=== PATIENT | female | born 1980 | race Caucasian/White ===

== ENCOUNTER → 2018-02-02 | Outpatient (CLI) | payer BC ==
--- NOTE | 2018-02-02 15:57 | RADIOLOGY IMAGING REPORT ---
FACILITY: [facility] [place] PATIENT NAME: RAFIA DOZIER : [id number] MR: [id number] V: [id number] EXAM DATE: ORDERING PHYSICIAN: RODRI IYER TECHNOLOGIST: Flory Gill PROCEDURE:BILATERAL DIAGNOSTIC DIGITAL MAMMOGRAM WITH CAD ASSISTED INTERPRETATION & 3D TOMOSYNTHESIS COMPARISON:None. INDICATIONS:TENDER LT BREAST FINDINGS: Moderately dense fibroglandular tissue is seen throughout the breasts. In the medial inferior portion of the Left breast in the middle 1/3 there is an ovoid nodular area. This likely represents the small cyst identified in the 6 o'clock position on Today's Left breast Ultrasound. There is no demonstration of malignant appearing mass or calcifications in either breast. DIAGNOSTIC CATEGORY 2--BENIGN FINDING. RECOMMENDATIONS: CLINICAL EVALUATION. IMPRESSION: BIRADS 2: Benign finding. Small ovoid nodule in the medial inferior Left breast likely represents the small cyst identified in the 6 o'clock position on Today's Left breast Ultrasound. Dictated by: Dina Garcia M.D. on 02/02/2018 at 14:55 Transcribed by: NIKO on 02/02/2018 at 15:11 Approved by: Dina Garcia M.D. on 02/02/2018 at 15:56 [facility]
--- NOTE | 2018-02-02 15:58 | RADIOLOGY IMAGING REPORT ---
FACILITY: [facility] [place] PATIENT NAME: RAFIA DOZIER : [id number] MR: [id number] V: [id number] EXAM DATE: ORDERING PHYSICIAN: RODRI IYER TECHNOLOGIST: Vikas Ly RDMS, NEGIN PROCEDURE:US LEFT BREAST COMPARISON:None. INDICATIONS:LEFT BREAST MASS 5-7 O'CLOCK POSITION FINDINGS: There is a well circumscribed 5mm cyst in the 6 o'clock position of the Left breast 5cm from the nipple likely accounting for patient's palpable findings. DIAGNOSTIC CATEGORY 2--BENIGN FINDING. RECOMMENDATIONS: CLINICAL EVALUATION. IMPRESSION: BIRADS 2: Benign finding. There is a small 5mm cyst in the 6 o'clock position of the Left breast most likely accounting for patient's palpable findings. Dictated by: Dina Garcia M.D. on 02/02/2018 at 14:56 Transcribed by: NIKO on 02/02/2018 at 15:15 Approved by: Dina Garcia M.D. on 02/02/2018 at 15:56 [facility]
== END ==
LOC: MAMO 10:34
PROVIDERS: ATTEND Physician Assistant
DX: N60.02 Solitary cyst of left breast (principal)
CPT/HCPCS: 77062; 77066

== ENCOUNTER → 2018-04-06 | Outpatient (CLI) | payer BC ==
[~2018-04-06] MED LIST: DEXL60CA6 PO
[2018-04-06 14:25] LABS: PLATELET COUNT, AUTOMATED 282 K/uL (150-450)
== END ==
LOC: LAB 13:54
PROVIDERS: ATTEND Nurse Practitioner Family
DX: R19.7 Diarrhea, unspecified (principal); K59.00 Constipation, unspecified; K21.9 Gastro-esophageal reflux disease without esophagitis
CPT/HCPCS: 36415; 82040; 82150; 82247; 82310; 82374; 82435; 82565; 82947; 83690; 84075; 84132; 84155; 84295; 84450; 84460; 84520; 85025

== ENCOUNTER 2018-04-07 00:38 | Day surgery (SDC) | payer BC ==
[~2018-04-07] VITALS: Ht 165.1 cm; Wt 69.9 kg
[2018-04-07 07:52] VITALS: BP 118/94
[2018-04-07] MEDS ORDERED: LIDOCAINE/SOD BICARB 8.4% SYR ID ONE (08:00)
[2018-04-07] MEDS ORDERED: NORMOSOL R SOLN(*) 1000 ML BAG 1,000 ML IV PRN (08:00)
[2018-04-07] MEDS ORDERED: LIDOCAINE MPF 1% 5 ML VIAL ONE (08:10)
[2018-04-07] MEDS ORDERED: PROPOFOL EMUL(*) 10MG/ML 20 ML 60 ML ONE (08:10)
[2018-04-07] MEDS ORDERED: KETAMINE HCL 500 MG/10 ML VIAL ONE (08:11)
[2018-04-07 10:08] VITALS: BP 107/87
[2018-04-07 10:34] VITALS: BP 116/87
[2018-04-07 10:51] VITALS: BP 120/96
[2018-04-07 10:52] VITALS: BP 129/97
== END 2018-04-07 11:00 | disposition home or self-care (01) ==
LOC: OR 00:38
PROVIDERS: ATTEND Internal Medicine Gastroenterology
DX: K44.9 Diaphragmatic hernia without obstruction or gangrene (principal); K20.9 Esophagitis, unspecified; K29.70 Gastritis, unspecified, without bleeding; K63.5 Polyp of colon; K64.8 Other hemorrhoids; K57.30 Diverticulosis of large intestine without perforation or abscess without bleeding
CPT/HCPCS: 00811; 43239; 45380; 45385; 88305; 88313; 88344; J2001; J2704; J3490

== ENCOUNTER 2018-07-01 11:25 | Emergency (ER) | payer BC ==
[2018-07-01] MEDS ORDERED: PROCHLORPERAZINE MAL 5 MG TAB PO ONE (12:00)
[2018-07-01] MEDS ORDERED: IBUPROFEN 600 MG TAB PO ONE (12:00)
[2018-07-01] MEDS ORDERED: ACETAMINOPHEN 325 MG TAB PO ONE (12:00)
[2018-07-01] MEDS ORDERED: diphenhydrAMINE 25 MG CAP PO ONE (12:00)
--- NOTE | 2018-07-01 12:30 | ER Report ---
History and Physical Time Seen By MD: 11:50 Hx. of Stated Complaint: migraine HPI/ROS CHIEF COMPLAINT: headache HISTORY OF PRESENT ILLNESS: Pt has 15 yr hx of intermittent rodriguez's, 2-3 /mo, usually last 1 d, resolved with excedrin. 2 d ago was at work when rodriguez began gradually, increasing to maximum over 1-2 hrs, and has been constant, throbbing, 8-9/10, radiating throughout her head, into her neck, and has not resolved with excedrin or sleep. She went to urgent care and referred here b/c this rodriguez is worse than others she's experienced. She also notes more nausea with it than usual. No weakness, no sudden onset or thunderclap, no syncope or presyncope. Notes that she is light sensitive, though no scotomas or blurred vision REVIEW OF SYSTEMS: Constitutional: No fever, no chills. Eyes: No discharge. ENT: No sore throat. Cardiovascular: No chest pain, no palpitations. Respiratory: No cough, no shortness of breath. Gastrointestinal: No abdominal pain, no vomiting. Genitourinary: No hematuria. Musculoskeletal: No back pain. Skin: No rashes. Neurological: above Remainder of the 14 system rev: Yes Allergies: Coded Allergies: No Known Drug Allergies (Unverified , 07/01/18) Home Meds Reported Medications Dexlansoprazole (DEXILANT) 60 Mg Michael., 60 MG PO QDAY 03/31/18 Reviewed Nurses Notes: Yes Hx Smoking: Yes Smoking Status: Current: Every Day Smoker, Light Tobacco Smoker Hx Substance Use Disorder: No Hx Alcohol Use: Yes Constitutional Vital Sign - Last 24 Hours 07/01/18 07/01/18 07/01/18 07/01/18 11:25 11:30 11:32 11:55 Temp 98.1 Pulse 70 71 66 Resp 12 B/P (MAP) 134/84 (101) 134/84 Pulse Ox 100 100 O2 Delivery Room Air 07/01/18 07/01/18 07/01/18 07/01/18 12:00 12:25 12:53 13:00 Pulse 71 58 B/P (MAP) 113/72 (86) 115/79 (91) 114/75 (88) Pulse Ox 96 97 07/01/18 13:30 Pulse 79 B/P (MAP) 134/112 (119) Pulse Ox 97 Physical Exam General Appearance: The patient is alert, has no immediate need for airway protection and no signs of toxicity. Eyes: Pupils equal and round no pallor or injection. ENT, Mouth: Mucous membranes are moist. Respiratory: There are no retractions, lungs are clear to auscultation. Cardiovascular: Regular rate and rhythm. Gastrointestinal: Abdomen is soft and non tender, no masses, bowel sounds normal. Neurological: alert, oriented x 4, moves all ext, nl cerebellar, cn ii-xii nl, reflexes nl, 5/5 ms, nl sensation throughout Skin: Warm and dry, no rashes. Musculoskeletal: neck is supple; pt has bilateral tenderness with point of maximal ttp at occiput bilaterally Extremities are nontender, nonswollen and have full range of motion. DIFFERENTIAL DIAGNOSIS: After history and physical exam differential diagnosis was considered for headache including but not limited to subarachnoid hemorrhage, migraine headache, tension headache and infectious causes such as meningitis, pharyngitis and sinusitis. Medical Decision Making Data Points Laboratory Hematology Test 07/01/18 12:30 Urine Color Yellow Urine Clarity Clear Urine pH 5.0 pH (4.8-9.5) Urine Specific [place] 1.029 Urine Protein Negative mg/dL (NEGATIVE) Urine Glucose (UA) Negative mg/dL (NEGATIVE) Urine Ketones Trace mg/dL (NEGATIVE) Urine Blood Negative (NEGATIVE) Urine Nitrite Negative (NEGATIVE) Urine Bilirubin Negative (NEGATIVE) Urine Urobilinogen 2.0 mg/dL (0.2-1.9) Urine Leukocyte Esterase Negative (NEGATIVE) Urine RBC 9 /HPF (0-2/HPF) Urine WBC 1 /HPF (0-5/HPF) Urine Squamous Epithelial Cells None /LPF (</=FEW) Urine Bacteria Moderate /HPF (NONE-FEW) Urine Mucus Few /HPF (NONE-FEW) Urine HCG, Qualitative Negative (NEGATIVE) Chemistry Test 07/01/18 12:30 Urine Color Yellow Urine Clarity Clear Urine pH 5.0 pH (4.8-9.5) Urine Specific [place] 1.029 Urine Protein Negative mg/dL (NEGATIVE) Urine Glucose (UA) Negative mg/dL (NEGATIVE) Urine Ketones Trace mg/dL (NEGATIVE) Urine Blood Negative (NEGATIVE) Urine Nitrite Negative (NEGATIVE) Urine Bilirubin Negative (NEGATIVE) Urine Urobilinogen 2.0 mg/dL (0.2-1.9) Urine Leukocyte Esterase Negative (NEGATIVE) Urine RBC 9 /HPF (0-2/HPF) Urine WBC 1 /HPF (0-5/HPF) Urine Squamous Epithelial Cells None /LPF (</=FEW) Urine Bacteria Moderate /HPF (NONE-FEW) Urine Mucus Few /HPF (NONE-FEW) Urine HCG, Qualitative Negative (NEGATIVE) Urinalysis Test 07/01/18 12:30 Urine Color Yellow Urine Clarity Clear Urine pH 5.0 pH (4.8-9.5) Urine Specific [place] 1.029 Urine Protein Negative mg/dL (NEGATIVE) Urine Glucose (UA) Negative mg/dL (NEGATIVE) Urine Ketones Trace mg/dL (NEGATIVE) Urine Blood Negative (NEGATIVE) Urine Nitrite Negative (NEGATIVE) Urine Bilirubin Negative (NEGATIVE) Urine Urobilinogen 2.0 mg/dL (0.2-1.9) Urine Leukocyte Esterase Negative (NEGATIVE) Urine RBC 9 /HPF (0-2/HPF) Urine WBC 1 /HPF (0-5/HPF) Urine Squamous Epithelial Cells None /LPF (</=FEW) Urine Bacteria Moderate /HPF (NONE-FEW) Urine Mucus Few /HPF (NONE-FEW) Urine HCG, Qualitative Negative (NEGATIVE) ED Course/Re-evaluation ED Course Pt presents with rodriguez with features similar to prior, however this has lasted longer and is worse than prior. Of note, on exam, rodriguez is completely reproducible with palpation at insertion of trapezius, bilaterally but cris on l side. I discussed at length r/b of further evaluation including sm possibility of SAH; ultimately with low pretest prob we elected to CT, however pt refused LP and realizes that CT is imperfect. She did agree to trigger point injection which ultimately provided near complete relief of pain. At d/c, neurologic exam nl, pt comfortable and understand SRP's. Procedure Procedure - trigger point injection at insertion of l trapezius Indication - rodriguez with trigger point ttp Consent - verbal after discussion of r/b Prep - standard sterile prep Performance - after ID of landmarks and marking of site, 3mL of 50% mixture of 1% lidocaine, 0.5% marcaine injected into insertion of l trapezius. Compl - pt experienced near relief of pain without complications. Decision to Disposition Date: Jul 01, 2018 Decision to Disposition Time: 13:49 Depart Departure Latest Vital Signs Vital Signs Date Time Temp Pulse Resp B/P (MAP) Pulse Ox O2 Delivery O2 Flow Rate FiO2 07/01/18 13:30 79 134/112 (119) 97 07/01/18 11:32 98.1 12 Room Air Impression: Primary Impression: Headache Condition: Improved Disposition: HOME OR SELF-CARE Patient Instructions: Acute Headache (ED) Additional Instructions: As we discussed, you make take excedrin/ibuprofen for discomfort. I also recommend you try accupressure with a tennis ball at the area of maximum discomfort. Please return immediately for sudden onset headache that is concerning, fevers, or other concerns. Problem Qualifiers Primary Impression: Headache Headache type: tension-type Headache chronicity pattern: acute headache Intractability: not intractable Qualified Codes: G44.209 - Tension-type headache, unspecified, not intractable JERRY JIMENEZ MD Jul 01, 2018 12:30
--- NOTE | 2018-07-01 13:22 | RADIOLOGY IMAGING REPORT ---
FACILITY: [facility] PATIENT NAME: Erika De La Garza : 1980 MR: [id number] V: [id number] EXAM DATE: ORDERING PHYSICIAN: JERRY JIMENEZ TECHNOLOGIST: Location: [facility] [place] Patient: Erika De La Garza : 1980 Visit/Account:[id number] Date of Sevice: 07/01/2018 Study: CT scan of the brain without intravenous contrast. Indication: Worst headache of life Comparison study:None Technique: Multiple axial images were obtained through the brain without the use of intravenous contr ast. One of the following dose optimization techniques was utilized in the performance of this exam: Autom ated exposure control; adjustment of the mA and/or kV according to the patient's size; or use of an i terative reconstruction technique. Specific details can be referenced in the facility's radiology C T exam operational policy. The examination demonstrates no evidence of acute intracranial hemorrhage. There is no evidence of ex tra-axial collection or hydrocephalus. There is no abnormal density identified within the brain parenchyma. There is no evidence of disruption of the peripheral jay-white junction. The bony structures are unremarkable. IMPRESSION:Unremarkable CT scan of the brain without contrast. Report Dictated By: Cesar Sykes at 07/01/2018 1:15 PM Report E-Signed By: Cesar Sykes at 07/01/2018 1:17 PM WSN:[id number]
[2018-07-01 13:30] VITALS: BP 134/112
== END 2018-07-01 13:56 | disposition home or self-care (01) ==
LOC: ER 12:30
DX: G44.209 Tension-type headache, unspecified, not intractable (principal)
CPT/HCPCS: 20552; 70450; 81001; 81025; 99284; Q0163; Q0164